=== PATIENT | female | born 1970 | race Caucasian/White ===

== ENCOUNTER 2024-10-21 17:14 | Emergency (ER) | payer OTHER, BC ==
[~2024-10-21] VITALS: Ht 165.1 cm; Wt 93.2 kg
[2024-10-21 17:22] VITALS: BP 143/84
== END 2024-10-21 19:45 | disposition home or self-care (01) ==
LOC: ED 17:14
DX: S20.212A Contusion of left front wall of thorax, initial encounter (principal); M79.644 Pain in right finger(s); N64.4 Mastodynia; Z88.0 Allergy status to penicillin; Z88.6 Allergy status to analgesic agent; Z88.1 Allergy status to other antibiotic agents; Z88.5 Allergy status to narcotic agent; Z91.040 Latex allergy status; Z98.890 Other specified postprocedural states; V49.40XA Driver injured in collision with unspecified motor vehicles in traffic accident, initial encounter; Y93.89 Activity, other specified; Y92.410 Unspecified street and highway as the place of occurrence of the external cause; Y99.8 Other external cause status